=== PATIENT | male | born 1965 | race African-American/Black ===

== ENCOUNTER 2019-07-15 09:11 | Emergency (ER) | payer OTHER | END 2019-07-15 10:04 | disposition home or self-care (01) | LOC: ERS 09:11 | DX: H60.93 Unspecified otitis externa, bilateral (principal); H72.92 Unspecified perforation of tympanic membrane, left ear ==

== ENCOUNTER 2019-09-09 08:00 | Emergency (ER) | payer BC, SELFPAY | END 2019-09-09 08:52 | disposition home or self-care (01) | LOC: ERS 08:00 | DX: B34.9 Viral infection, unspecified (principal); I10 Essential (primary) hypertension | CPT/HCPCS: 87804; 99283 ==